=== PATIENT | male | born 1990 | race Caucasian/White ===

== ENCOUNTER 2019-01-06 13:56 | Emergency (ER) | payer OTHER ==
[~2019-01-06] VITALS: Ht 180.3 cm; Wt 81.6 kg
[2019-01-06] MEDS ORDERED: HUMALOG100 UNIT/1 (15:02)
[2019-01-06] MEDS ORDERED: LANTUS SOL100 UNIT/1 SUBCUTANEO (15:03)
[2019-01-06] MEDS ORDERED: INTESTINEX680 M1 PO (16:48)
[2019-01-06] MEDS ORDERED: AMOX-CLAV 875-1 EACH PO (16:48)
== END 2019-01-06 17:03 | disposition home or self-care (01) ==
LOC: ER 13:56
DX: L03.113 Cellulitis of right upper limb (principal)